=== PATIENT | female | born 1980 | race Caucasian/White ===

== ENCOUNTER 2018-07-10 18:54 | Emergency (ER) | payer BC ==
[~2018-07-10] VITALS: Ht 177.8 cm; Wt 86.2 kg
[2018-07-10] MEDS ORDERED: ONDANSETRON HCL 4 MG/2 ML VIAL IV ONE (19:30)
[2018-07-10] MEDS ORDERED: HYDROmorphone HCL 2 MG/ML VL IV ONE ×6 (19:30→23:00)
[2018-07-10] MEDS ORDERED: HYDROmorphone HCL 2 MG/ML VL ONE ×4 (19:52→22:53)
[2018-07-11 00:04] VITALS: BP 116/54
== END 2018-07-11 00:14 | disposition short-term general hospital (02) ==
LOC: EDBD 18:54 → ER 19:03
DX: S82.142A Displaced bicondylar fracture of left tibia, initial encounter for closed fracture (principal); Z90.49 Acquired absence of other specified parts of digestive tract; F17.210 Nicotine dependence, cigarettes, uncomplicated; W19.XXXA Unspecified fall, initial encounter; Y93.89 Activity, other specified; Y99.0 Civilian activity done for income or pay; Y92.69 Other specified industrial and construction area as the place of occurrence of the external cause
CPT/HCPCS: 29505; 73562; 73590; 96374; 96375; 96376; 99285; J1170; J2405